=== PATIENT | male | born 1965 | race Caucasian/White ===

== ENCOUNTER → 2016-05-17 | Outpatient (CLI) | payer MEDICARE, MEDICAID ==
[~2016-05-17] MED LIST: BACTRIM DS 8001 TAB PO; BACTROBAN2% TP; DARVOCET-N 1001 EACH PO; FLEXERIL10 MG PO; GABAPENTIN 600600 MG PO; HYDROCODONE-APA1 TA2 PO; HYDROCODONE1 TABLET PO; LISINOPRIL5 MG NG; LORTAB 5/500 501 TAB PO; MEDROL 4MG. DOSE4 MG PO; MELOXICAM15 MG PO; MINOCYCLINE 10100 MG PO; MOTRIN600 MG PO; NORCO 325 MG-51 TAB PO; PREDNISONE 20MG20 MG PO; SEPTRA DS 800 M1 TAB PO; SULFAMETH PO; SULFAMETHOXAZOL1 TA6 PO; TRIMETHOPRIM W/1 TAB PO; ULTRACET 325 MG1 TAB PO; ULTRAM 50 MG TA50 MG PO; VICODIN 5/500 T1 TAB PO; [UNRECOGNIZED DRUG - OTHER] PO
[2016-05-17 11:29] LABS: HEMOGLOBIN 16.5 g/dL (14.1-18.0); LYMPH # 2.6 K/mm3 (0.7-4.5); LYMPH % 34.5 % (10-50)
== END ==
LOC: LAB 11:09
PROVIDERS: Emergency Medicine
DX: M54.9 Dorsalgia, unspecified (principal); M48.06 Spinal stenosis, lumbar region

== ENCOUNTER → 2017-01-01 | Outpatient (CLI) | payer MEDICARE, MEDICAID ==
[2017-01-01 15:49] LABS: AMPHETAMINES/METAMPHETAMINES NEGATIVE ng/mL (<1000)
== END ==
LOC: LAB 14:03
PROVIDERS: Emergency Medicine
DX: Z79.899 Other long term (current) drug therapy (principal)

== ENCOUNTER → 2017-01-24 | Outpatient (CLI) | payer MEDICARE, MEDICAID ==
[2017-01-24 13:24] LABS: AMPHETAMINES/METAMPHETAMINES NEGATIVE ng/mL (<1000)
[2017-01-29 03:38] LABS: Opiates Negative (Cutoff=100)
== END ==
LOC: LAB 12:06
PROVIDERS: Emergency Medicine
DX: Z79.899 Other long term (current) drug therapy (principal)

== ENCOUNTER → 2017-02-26 | Outpatient (CLI) | payer MEDICARE, MEDICAID ==
[2017-02-26 14:23] LABS: AMPHETAMINES/METAMPHETAMINES NEGATIVE ng/mL (<1000)
[2017-03-09 18:40] LABS: Opiates Negative (Cutoff=100)
== END ==
LOC: LAB 12:31
PROVIDERS: Emergency Medicine
DX: Z79.899 Other long term (current) drug therapy (principal); M54.9 Dorsalgia, unspecified